=== PATIENT | female | born 1980 | race Caucasian/White ===

== ENCOUNTER 2021-10-19 15:56 | Emergency (ER) | payer MEDICAID, OTHER ==
[~2021-10-19] VITALS: Ht 175.3 cm; Wt 86.2 kg
[2021-10-19 16:14] VITALS: BP 137/77
[2021-10-19] MEDS ORDERED: LIDOCAINE 1% INJ 50 ML MDV IJ ONE (16:22)
[2021-10-19] MEDS ORDERED: IBUP-1955 PO (17:44)
--- NOTE | 2021-10-19 17:50 | NUR ---
Patient discharged to home in stable condition. Written and verbal after care instructions given. Patient verbalizes understanding of instruction.
== END 2021-10-19 17:50 | disposition home or self-care (01) ==
LOC: ER 16:17
DX: S61.112A Laceration without foreign body of left thumb with damage to nail, initial encounter (principal); J45.909 Unspecified asthma, uncomplicated; Z88.5 Allergy status to narcotic agent; Z88.6 Allergy status to analgesic agent; W26.0XXA Contact with knife, initial encounter; Y93.89 Activity, other specified; Y92.89 Other specified places as the place of occurrence of the external cause; Y99.8 Other external cause status
CPT/HCPCS: 12002; 99282; J3490

== ENCOUNTER 2024-08-11 09:19 | Emergency (ER) | payer OTHER ==
[~2024-08-11] VITALS: Ht 175.3 cm; Wt 86.6 kg
[~2024-08-11 09:19] MED LIST: IBUP-1955 PO
[2024-08-11 09:33] VITALS: BP 107/79; TEMP 98
[2024-08-11 10:13] VITALS: O2SAT 99
== END 2024-08-11 10:13 | disposition home or self-care (01) ==
LOC: ER 09:25
DX: L02.511 Cutaneous abscess of right hand (principal); J45.909 Unspecified asthma, uncomplicated; Z88.5 Allergy status to narcotic agent